=== PATIENT | male | born 1985 | race Asian ===

== ENCOUNTER 2018-06-28 06:34 | Inpatient (IN) | payer OTHER ==
[~2018-06-28] VITALS: Ht 182.9 cm; Wt 105.7 kg
[2018-06-28 06:47] VITALS: BP_SYST 143
[2018-06-28] MEDS ORDERED: NACL 0.9% 1,000 ML IV ONE ×2 (07:00→11:45)
[2018-06-28 07:33] LABS: BASOPHILS % (AUTO) 0.1 % (0.0-2.0); EOSINOPHILS % (AUTO) 0.2 % (0.0-4.0); HEMATOCRIT 44.7 % (36-54); LYMPHOCYTES # (AUTO) 0.9 K/uL (1.0-5.5); MEAN CORPUSCULAR HEMOGLOBIN 29 pg (27-31); MEAN CORPUSCULAR HGB CONC 33 % (32-36); MEAN CORPUSCULAR VOLUME 87 fL (79.0-98.0); MONOCYTES # (AUTO) 0.9 K/uL (0.0-1.0); MONOCYTES % (AUTO) 7.3 % (1.7-9.3); NEUTROPHILS # (AUTO) 10.9 K/uL (1.8-7.7); NEUTROPHILS % (AUTO) 85.4 % (40.0-70.0); PLATELET COUNT (AUTO) 193 K/uL (130-430); RED BLOOD CELL COUNT(AUTO) 5.16 MIL/uL (4.2-6.2); RED CELL DISTRIBUTION WIDTH 11.9 % (9.0-15.0); WHITE BLOOD COUNT (AUTO) 12.8 K/uL (4.8-10.8)
[2018-06-28 07:38] LABS: CREATININE 1.09 mg/dL (0.55-1.30); POTASSIUM 3.9 mmol/L (3.5-5.1)
[2018-06-28 07:44] LABS: ALBUMIN 3.6 g/dL (3.4-4.8); TOTAL BILIRUBIN 0.6 mg/dL (0.0-1.0)
[2018-06-28 07:57] LABS: BILIRUBIN,URINE NEGATIVE (NEGATIVE); BLOOD, URINE 2+ (NEGATIVE); CLARITY/URINE CLEAR (CLEAR); COLOR,URINE YELLOW (YELLOW); GLUCOSE,URINE NEGATIVE (NEGATIVE); KETONES,URINE TRACE (NEGATIVE); LEUKOCYTE ESTERASE ,URINE NEGATIVE (NEGATIVE); NITRITE, URINE NEGATIVE (NEGATIVE); PH,URINE 6.5 (5.0-8.0); PROTEIN URINE 1+ (NEGATIVE)
[2018-06-28 08:24] LABS: BACTERIA,URINE RARE /HPF (None Seen); MUCUS,URINE 1+ /LPF (None Seen); WBC,URINE 0-3 /HPF (0-3)
[2018-06-28] MEDS ORDERED: cefTRIAXone 1 GM in D5W 50 ML IV ONE (10:30)
[2018-06-28] MEDS ORDERED: cefTRIAXone 1 GM VIAL ONE (10:33)
[2018-06-28] MEDS ORDERED: ACETAMINOPHEN 500 MG TABLET PO ONE (11:30)
[2018-06-28] MEDS ORDERED: NACL 0.9% 2,000 ML IV ONE (11:30)
[2018-06-28] MEDS ORDERED: ONDANSETRON HCL 4 MG/2 ML VIAL IVP PRN (11:45)
[2018-06-28] MEDS ORDERED: ZOLPIDEM TARTRATE 5 MG TABLET PO PRN (11:45)
[2018-06-28] MEDS ORDERED: LORazepam 2 MG/ML VIAL IVP PRN (11:45)
[2018-06-28] MEDS ORDERED: MAGNESIUM SULFATE 50 ML IV PRN (11:45)
[2018-06-28] MEDS ORDERED: POTASSIUM CHLORIDE 20 MEQ TAB.PRT.SR PO PRN (11:45)
[2018-06-28] MEDS ORDERED: DOCUSATE SODIUM 100 MG CAPSULE PO PRN (11:45)
[2018-06-28] MEDS ORDERED: ACETAMINOPHEN 325 MG TABLET PO PRN (11:45)
[2018-06-28] MEDS ORDERED: MUPIROCIN 2% TOPICAL OINTMENT 22 GM NS PRN (11:45)
[2018-06-28] MEDS ORDERED: MORPHINE 2 MG/ML INJ. SYRINGE IVP PRN ×2 (11:45)
[2018-06-28] MEDS ORDERED: IOHEXOL 100 ML IV ONE (12:08)
[2018-06-28 13:45] VITALS: BP_SYST 110
[2018-06-28 16:00] VITALS: BP_SYST 112
[2018-06-28] MEDS ORDERED: OSELTAMIVIR PHOSPHATE 75 MG CAPSULE PO ONE (18:00)
[2018-06-28] MEDS ORDERED: DOXYCYCLINE HYCLATE 100 MG CAPSULE PO ONE (18:00)
[2018-06-28 18:21] VITALS: BP_SYST 131
[2018-06-28 20:00] VITALS: BP_SYST 117
[2018-06-28] MEDS ORDERED: OSELTAMIVIR PHOSPHATE 75 MG CAPSULE PO SCH (21:00)
[2018-06-28] MEDS ORDERED: DOXYCYCLINE HYCLATE 100 MG CAPSULE PO SCH (21:00)
== END 2018-06-28 21:30 | disposition short-term general hospital (02) | DRG 865 ==
LOC: SED 06:34 → STU 11:37
PROVIDERS: ADMIT General Practice; ATTEND General Practice
DX: B34.9 Viral infection, unspecified (principal); G03.9 Meningitis, unspecified
CPT/HCPCS: 36415; 71045; 80053; 81000-TC; 83036; 83605; 84484; 85025; 86710; 87040-TC; 87086; 93005; 96361; 96365; 99285; G0378; G9035; J0696; J7030; J7040; J7060; Q9967

== ENCOUNTER 2023-02-08 04:10 | Emergency (ER) | payer OTHER ==
[~2023-02-08] VITALS: Ht 182.9 cm; Wt 108.9 kg
[2023-02-08 04:20] VITALS: BP_SYST 121; PULSE 106; RESP 17; TEMP 99.5; O2SAT 100
[2023-02-08 05:17] LABS: INFLUENZA TYPE A Negative (NEGATIVE); INFLUENZA TYPE B NEGATIVE (NEGATIVE)
[2023-02-08 06:06] VITALS: BP_SYST 121; PULSE 106; RESP 17; TEMP 99.5; O2SAT 100
[2023-02-08] MEDS ORDERED: ACETAMINOPHEN 500 MG TABLET ONE (18:30)
== END 2023-02-08 06:07 | disposition home or self-care (01) ==
LOC: SED 04:10
DX: B34.9 Viral infection, unspecified (principal); R05.9 Cough, unspecified; R50.9 Fever, unspecified; Z79.899 Other long term (current) drug therapy; Z20.822 Contact with and (suspected) exposure to COVID-19
CPT/HCPCS: 36415; 99283

== ENCOUNTER 2023-02-22 10:28 | Emergency (ER) | payer OTHER ==
[~2023-02-22] VITALS: Ht 182.9 cm; Wt 108.4 kg
[2023-02-22 10:31] VITALS: BP_SYST 138; PULSE 88; RESP 13; TEMP 97.8; O2SAT 96
[2023-02-22] MEDS ORDERED: IBUPROFEN 800 MG TABLET PO ONE (10:45)
[2023-02-22] MEDS ORDERED: IBUP-1971 PO (11:28)
[2023-02-22 11:33] VITALS: BP_SYST 138; PULSE 88; RESP 13; TEMP 97.8; O2SAT 96
== END 2023-02-22 11:33 | disposition home or self-care (01) ==
LOC: SED 10:28
DX: S20.214A Contusion of middle front wall of thorax, initial encounter (principal); Z79.899 Other long term (current) drug therapy; Y04.0XXA Assault by unarmed brawl or fight, initial encounter; Y93.89 Activity, other specified; Y92.89 Other specified places as the place of occurrence of the external cause; Y99.8 Other external cause status
CPT/HCPCS: 71045; 93005; 99283

== ENCOUNTER 2023-11-29 08:21 | Outpatient (CLI) | payer OTHER ==
[~2023-11-29 08:21] MED LIST: IBUP-1971 PO
== END 2023-11-29 20:48 | disposition home or self-care (01) ==
LOC: SMI 08:21
PROVIDERS: ATTEND Student in an Organized Health Care Education/Training Program
DX: M25.871 Other specified joint disorders, right ankle and foot (principal); M79.671 Pain in right foot; R26.2 Difficulty in walking, not elsewhere classified
CPT/HCPCS: 73721